=== PATIENT | female | born 1935 | race Caucasian/White ===

== ENCOUNTER 2018-10-17 13:52 | Emergency (ER) | payer MEDICARE, MEDICAID ==
[2018-10-17 13:55] VITALS: BMI 25.7
--- NOTE | 2018-10-17 14:04 | C.PDOC ---
History Of Present Illness 83 year old female brought by EMS after patient was found unresponsive at retirement. Per EMS retirement staff noted agonal breathing and bradycardia in the 30s. Documented DNI/DNR in place. EMS states patient has no palpable pulses or measurable blood pressure. External pacing initiated and oxygen support given on route by EMS. Time Seen by Provider: 10/17/18 14:00 Chief Complaint (Nursing): Cardiac Arrest History Per: EMS Reason For Code Blue: Unresponsive Circumstances: Brought To ED By EMS Arrest Witnessed By: Nurse CPR Initiated Prior To MD Arrival?: No - Initial Findings Mentation: Unresponsive Respirations: Agonal Pulse: None Past Medical History Reviewed: Historical Data, Nursing Documentation, Vital Signs - Medical History PMH: Arthritis, Gall Bladder Disease (GALLSTONES 2 YRS AGO), HTN, Hypercholesterolemia, Peripheral Edema Denies: Chronic Kidney Disease Surgical History: Cholecystectomy, Coronary Stent (2002) Family History: States: Unknown Family Hx Review Of Systems Review Of Systems: ROS cannot be obtained secondary to pt's inabilty to answer questions. Physical Exam - Physical Exam Appears: Other (unresponsive) Head: Atraumatic Respiratory: Other (sporadic agonal breathing ) Extremity: Other (poor perfusion) Extremity: Bilateral: Atraumatic, Pulse Deficit (no palpable pulses ) Pulses: Left Radial: Absent, Right Radial: Absent Neurological/Psych: Other (no response to sternal rub) Progress - Re-Evaluation Re-evaluation Note: 10/17/18 14:07 CERT CASE #[id number] Medical Decision Making Medical Decision Making: Time of called 13:56. Disposition - Disposition Disposition: WITH WITHOUT AUTOPSY Disposition Time: 14:00 Condition: Forms: [employer] ([employer]) - Clinical Impression Clinical Impression: Respiratory arrest, Cardiac arrest - Scribe Statement The provider has reviewed the documentation as recorded by the Scribe (Vivi Linton) Provider Attestation: All medical record entries made by the Scribe were at my direction and personally dictated by me. I have reviewed the chart and agree that the record accurately reflects my personal performance of the history, physical exam, medical decision making, and the department course for this patient. I have also personally directed, reviewed, and agree with the discharge instructions and disposition.
[2018-10-17 14:17] VITALS: BP 00/00; PULSE 0; RESP 0; TEMP 96; O2SAT 0
--- NOTE | 2018-10-22 23:47 | CARD ---
APPROVED REPORT Date of service: 10/17/2018 EKG Measurement Heart [id number] <Conclusion> Less than 4 QRS complexes detected, no interpretation possible Sinus arrest with junctional escape beat 5.6 longest pause noted
== END 2018-10-17 17:26 ==
LOC: C.ER 13:52
DX: I46.9 Cardiac arrest, cause unspecified (principal)